=== PATIENT | female | born 1995 | race Caucasian/White ===

== ENCOUNTER → 2016-12-21 | Outpatient (CLI) | payer OTHER ==
--- NOTE | 2016-12-21 07:56 | US ---
EXAMINATION TYPE: US liver DATE OF EXAM: 12/21/2016 7:42 AM COMPARISON: NONE CLINICAL HISTORY: Abn LFT R94.5. no complaints of pain, abn lab EXAM MEASUREMENTS: Liver Length: 15.0 cm Gallbladder Wall: 0.2 cm CBD: 0.4 cm Right Kidney: 9.9 x 3.7 x 4.7 cm Pancreas: wnl Liver: wnl Gallbladder: wnl Evidence for sonographic Virk's sign: no CBD: wnl Right Kidney: wnl No ascites. IMPRESSION: No significant abnormalities evident.
== END ==
LOC: RADUSWWP 07:30
PROVIDERS: ATTEND Internal Medicine Gastroenterology
DX: R94.5 Abnormal results of liver function studies (principal)
CPT/HCPCS: 76705

== ENCOUNTER → 2019-04-29 | Outpatient (CLI) | payer OTHER ==
--- NOTE | 2019-04-29 13:11 | USB ---
Reason for exam: clinical finding. Indicated problem(s): lump or thickening in the right breast. Physical Findings: Nurse Summary: Patient complains of right breast lump increased in size x 4 months. 4cm firm irregular lump right breast retroareolar upper inner quarant 1cm pea size round lumps 9 o'clock, 11 o'clock cluster (nurse mj). US Breast RT Right complete breast ultrasound includes all four quadrants, the retroareolar region and axilla. Finding demonstrates a 2.9 x 2.7 x 1.4cm irregular, mixed, vascular lesion at 1 o'clock. Morphologically normal right axillary node with regular fatty hilum and no cortical thickening. BB at 8 and 9 o'clock, no definite nodule seen. These results were verbally communicated with the patient and result sheet given to the patient on 04/29/19. ASSESSMENT: Suspicious, BI-RAD 4 RECOMMENDATION: Ultrasound core biopsy of the right breast. Called Dr. Sorenson with mammographic findings and has scheduled an appointment for the patient for 05/30/19 at 1:[address] Wheeler. Biopsy scheduled for 05/22/19 at 12:20. PRELIMINARY REPORT CALLED AND FAXED TO DR. WHEELER ON 04/29/19.
== END | disposition home or self-care (01) ==
LOC: RADUSWWP 09:49
PROVIDERS: ATTEND Internal Medicine
DX: N63.12 Unspecified lump in the right breast, upper inner quadrant (principal)

== ENCOUNTER → 2019-10-10 | Outpatient (CLI) | payer OTHER ==
[2019-10-10 13:51] VITALS: BP 116/71; PULSE 87; RESP 16; TEMP 97.6
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
== END ==
LOC: WWCWWP 13:05
PROVIDERS: ATTEND Surgery
DX: Z53.9 Procedure and treatment not carried out, unspecified reason (principal)